=== PATIENT | female | born 1940 | race Two or more races ===

== ENCOUNTER 2023-03-24 05:16 | Day surgery (SDC) | payer OTHER ==
[~2023-03-24 05:16] MED LIST: ANTIVERT PO; GABAPENTIN800 MG; ZOCOR20 MG PO
== END 2023-03-24 14:10 | disposition home or self-care (01) ==
LOC: CIR.AMB 05:16 → EDBD 11:15 → CIR.AMB 11:15
PROVIDERS: ATTEND Surgery
DX: K43.2 Incisional hernia without obstruction or gangrene (principal); Z20.822 Contact with and (suspected) exposure to COVID-19